=== PATIENT | female | born 2005 | race African-American/Black ===

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

== ENCOUNTER 2025-09-18 08:00 | Emergency (ER) | payer SELFPAY ==
[2025-09-18 08:29] LABS: #Basophils Less than 0.03 10x3/uL (0.0-0.2); #Eosinophils Less than 0.03 10x3/uL (0.0-0.7); #Monocytes 0.21 10x3/uL (0.11-0.59); #Neutrophils 10.59 10x3/uL (1.40-6.50); %Basophils 0.2 % (0.0-1.0); %Eosinophils 0.2 % (0.0-10.0); %Lymphocytes 3.8 % (28.0-48.0); %Monocytes 1.9 % (0.0-4.0); %Neutrophils 93.7 % (31.0-61.0); Hematocrit 33.7 % (36.0-47.0); Hemoglobin 10.1 g/dL (12.0-16.0); Mean Corpuscular Hemoglobin 25.0 pg (25.0-35.0); Mean Corpuscular Volume 83.4 fL (78.0-98.0); Platelet Count 277 10x3/uL (130-400); Red Blood Cell (RBC) Count 4.04 mill/uL (4.00-5.20); White Blood Cell (WBC) Count 11.29 10x3/uL (4.8-10.8)
[2025-09-18] MEDS ORDERED: Ondansetron PF 4 MG/2 ML Vial ONE (08:29)
[2025-09-18 08:40] LABS: BHCG - Serum Negative (NEGATIVE); Pregs Control Background? CLEAR/WHITE (CLR/WHITE); Pregs Control Bar Appear? YES (CONTROL BAR)
[2025-09-18 08:48] LABS: ALT (SGPT) 13 U/L (Less than 34); AST (SGOT) 31 U/L (11-34); Albumin 4.4 g/dL (3.1-4.5); Alkaline Phosphatase 40 U/L (40-100); Anion Gap 13 mmol/L (10-20); BUN (Urea Nitrogen) 12 mg/dL (7.0-18.7); Bilirubin, Total 0.8 mg/dL (0.3-1.2); Calc. Creatinine Clearance 0 mL/min (70-130); Calcium 9.1 mg/dL (7.8-10.44); Carbon Dioxide 25 mmol/L (22-29); Chloride 102 mmol/L (98-107); Globulin 3.3 g/dL (2.4-3.5); Glucose 104 mg/dL (70-105); Lipase 12 U/L (8-78); Potassium 3.7 mmol/L (3.5-5.1); Sodium 136 mmol/L (136-145)
== END 2025-09-18 09:38 | disposition home or self-care (01) ==
LOC: ERS 08:00
DX: R11.2 Nausea with vomiting, unspecified (principal); R19.7 Diarrhea, unspecified
CPT/HCPCS: 80053; 83690; 84703; 85025; 96361; 96374; 96375; J2405